=== PATIENT | female | born 1985 | race African-American/Black ===

== ENCOUNTER 2022-05-06 14:48 | Emergency (ER) | payer OTHER ==
[~2022-05-06] VITALS: Ht 170.2 cm; Wt 70.9 kg
[2022-05-06 14:49] VITALS: BP 102/55
[2022-05-06] MEDS ORDERED: AMOX875T2 PO (15:36)
== END 2022-05-06 15:49 | disposition home or self-care (01) ==
LOC: M ED 14:48
DX: L03.012 Cellulitis of left finger (principal)

== ENCOUNTER → 2022-06-19 | Outpatient (CLI) | payer OTHER ==
[~2022-06-19] MED LIST: AMOX875T2 PO
[2022-06-20 23:07] LABS: HBV HBV DNA not detected IU/mL (.); HERPES ZOSTER, VARICELLA IgG 1311 index (Immune >165); MUMPS VIRUS IgG ANTIBODY 66.7 AU/mL (Immune >10.9); RUBEOLA IgG ANTIBODY 42.6 AU/mL (Immune >16.4)
== END ==
LOC: M WUC 10:10
PROVIDERS: ATTEND Nurse Practitioner Family
DX: Z02.1 Encounter for pre-employment examination (principal)